=== PATIENT | male | born 1975 | race Asian ===

== ENCOUNTER 2017-03-18 15:50 | Emergency (ER) | payer OTHER ==
[~2017-03-18] VITALS: Ht 177.8 cm; Wt 59.9 kg
[2017-03-18 16:01] VITALS: BP 112/95
== END 2017-03-18 16:53 | disposition home or self-care (01) ==
LOC: EDBD 15:50 → ED 15:50
DX: S80.812A Abrasion, left lower leg, initial encounter (principal); V89.2XXA Person injured in unspecified motor-vehicle accident, traffic, initial encounter; Y93.89 Activity, other specified; Y99.8 Other external cause status; Y92.89 Other specified places as the place of occurrence of the external cause
CPT/HCPCS: 90715